=== PATIENT | female | born 1940 | race Caucasian/White ===

== ENCOUNTER 2016-07-11 08:59 | Outpatient (CLI) | payer MEDICARE ==
[~2016-07-11] VITALS: Ht 167.6 cm; Wt 81.8 kg
[~2016-07-11 08:59] MED LIST: ASPI-892 PO; CLCX100C PO; DOXY-13 PO; GLUC1000 PO; HCT25T PO; LVT.05T PO; METO50TA7 PO; OMEP-10 PO; SIMV20TA3 PO
[2016-07-11] MEDS ORDERED: GLUC1CAP14 PO (09:14)
[2016-07-11] MEDS ORDERED: RANI-515 PO ×2 (09:14)
[2016-07-11 09:25] VITALS: BP 142/81
[2016-07-11 10:01] LABS: BASOPHILS % (AUTO) 1 % (0-10); EOSINOPHILS # (AUTO) 0.1 10^3/uL (0.0-0.3); EOSINOPHILS % (AUTO) 2 % (0-10); LYMPHOCYTES # (AUTO) 0.7 X 10^3 (1.0-4.0); LYMPHOCYTES % (AUTO) 9 % (12-44); MEAN CORPUSCULAR HEMOGLOBIN 31 PG (25-34); MEAN CORPUSCULAR HGB CONC 33 G/DL (32-36); MEAN CORPUSCULAR VOLUME 93 FL (80-99); MEAN PLATELET VOLUME 9.5 FL (7.4-10.4); MONOCYTES # (AUTO) 0.5 X 10^3 (0.0-1.0); MONOCYTES % (AUTO) 6 % (0-12); NEUTROPHILS # (AUTO) 6.9 X 10^3 (1.8-7.8); NEUTROPHILS % (AUTO) 83 % (42-75); PLATELET COUNT 285 10^3/uL (130-400); RED BLOOD COUNT 4.39 10^6/uL (4.35-5.85); RED CELL DISTRIBUTION WIDTH 12.6 % (10.0-14.5); WHITE BLOOD COUNT 8.4 10^3/uL (4.3-11.0)
[2016-07-11 10:12] LABS: ANION GAP 11 MMOL/L (5-14); BLOOD UREA NITROGEN 11 MG/DL (7-18); BUN/CREATININE RATIO 14; CALCIUM 9.6 MG/DL (8.5-10.1); CARBON DIOXIDE 26 MMOL/L (21-32); CHLORIDE 101 MMOL/L (98-107); CREATININE SERUM 0.79 MG/DL (0.60-1.30); GFR ESTIMATED > 60; GLUCOSE 141 MG/DL (70-105); POTASSIUM 3.8 MMOL/L (3.6-5.0); SODIUM 138 MMOL/L (135-145)
[2016-07-14] MEDS ORDERED: ceFAZolin 1 GM/NS 50 ML IVPB IV ONE ×2 (07:45)
== END 2016-07-11 10:45 | disposition home or self-care (01) ==
LOC: PREOP 08:59
PROVIDERS: ATTEND Surgery Pediatric Surgery
DX: Z01.812 Encounter for preprocedural laboratory examination (principal); Z11.2 Encounter for screening for other bacterial diseases; K57.92 Diverticulitis of intestine, part unspecified, without perforation or abscess without bleeding; K80.20 Calculus of gallbladder without cholecystitis without obstruction
CPT/HCPCS: 36415; 80048; 85025; 87081

== ENCOUNTER 2016-07-14 07:00 | Day surgery (SDC) | payer MEDICARE ==
[~2016-07-14] VITALS: Ht 167.6 cm; Wt 81.8 kg
[~2016-07-14 07:00] MED LIST changes: +GLUC1CAP14 PO; +RANI-515 PO
--- OUTSIDE RECORDS SUMMARY | 2016-07-14 07:06 | XMS REPORT | Continuity of Care Document ---
Author Author [facility] Organization 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 Medications Current Home Medications Medication Dose Units Route Directions Days/Qty Instructions Start Date Celecoxib 100 Mg 1 Oral Twice A Day 07/10/10 Metoprolol Succinate 50 Mg 1 Oral Daily 07/10/10 Levothyroxine Sodium 50 Mcg 1 Oral Daily 07/10/10 Aspirin 81 Mg 1 Oral Daily 07/10/10 Simvastatin 20 Mg 1 Oral Daily 07/10/10 Hydrochlorothiazide 25 Mg 12.5 Mg Oral Daily 07/10/10 Gluc Hcl/Csa/Elpidio Hy/Hyalur Ac 1 Each 2 Each Oral Daily 07/11/16 Ranitidine Hcl (Ranitidine) 150 Mg 150 Mg Oral Daily 07/11/16 Ranitidine Hcl (Ranitidine) 150 Mg 300 Mg Oral Bedtime 07/11/16 Past Home Medications Medication Directions Ordered Status Omeprazole 20 Mg Capsule.dr, 1 Oral Daily 02/05/11 Discontinued Glucosamine Sulfate 1,000 Mg Capsule, 1500 Oral Daily 07/10/10 Discontinued Doxycycline Hyclate 100 Mg Capsule, 1 Each Oral Give Every 12 Hrs On Schedule 07/10/10 Discontinued Social History Social History Problem Response Recorded Date/Time Alcohol Use Denies Use 07/11/2016 9:11am Recreational Drug Use No 07/11/2016 9:11am Recent Foreign Travel No 07/11/2016 9:09am Recent Infectious Disease Exposure No 07/11/2016 9:09am Sexually Transmitted Disease No 07/11/2016 9:11am HIV/AIDS No 07/11/2016 9:11am Smoking Status Never a Smoker 07/11/2016 9:11am Recent Hopitalizations No 07/11/2016 9:11am Sexually Transmitted Disease No 07/11/2016 9:11am Query Response Start Date Stop Date Smoking Status Never a Smoker Hospital Discharge Instructions No hospital discharge instructions. Plan of Care Discharge Date 07/11/16 10:45am Prescriptions See Medication Section Functional Status No functional status results. Allergies, Adverse Reactions, Alerts No known allergies. Immunizations No immunization records. Vital Signs Acute Vital Signs Vital Response Date/Time Pulse Rate (adult) 68 bpm (60 - 90) 07/11/2016 9:25am Respiratory Rate 16 bpm (12 - 24) 07/11/2016 9:25am O2 Sat by Pulse Oximetry 97 % (88 - 100) 07/11/2016 9:25am Blood Pressure 142/81 mm Hg 07/11/2016 9:25am Blood Pressure Mean 101 mm Hg 07/11/2016 9:25am Pain Numeric Pain Scale 0-No Pain 07/11/2016 9:25am Height (Feet) 5 feet 07/11/2016 9:09am Height (Inches) 6.00 inches 07/11/2016 9:09am Height (Calculated Centimeters) 167.632434 cm 07/11/2016 9:09am Weight (Pounds) 180 pounds 07/11/2016 9:09am Weight (Ounces) 7.0 oz 07/11/2016 9:09am Weight (Calculated Grams) 59443.07 gm 07/11/2016 9:09am Weight (Calculated Kilograms) 81.668596 kilograms 07/11/2016 9:09am Calculated BMI 29.1 07/11/2016 9:09am Results Laboratory Results Test Name Result Units Flags Reference Collection Date/Time Result Date/ Time Comments White Blood Count 8.4 10^3/uL 4.3-11.0 07/11/2016 9:35am 07/11/2016 10: 01am Red Blood Count 4.39 10^6/uL 4.35-5.85 07/11/2016 9:35am 07/11/2016 10: 01am Hemoglobin 13.5 G/DL 11.5-16.0 07/11/2016 9:35am 07/11/2016 10:01am Hematocrit 41 % 35-52 07/11/2016 9:35am 07/11/2016 10:01am Mean Corpuscular Volume 93 FL 80-99 07/11/2016 9:35am 07/11/2016 10: 01am Mean Corpuscular Hemoglobin 31 PG 25-34 07/11/2016 9:35am 07/11/2016 10 :01am Mean Corpuscular Hemoglobin Concent 33 G/DL 32-36 07/11/2016 9:35am 11/2016 10:01am Red Cell Distribution Width 12.6 % 10.0-14.5 07/11/2016 9:35am 2016 10:01am Platelet Count 285 10^3/uL 130-400 07/11/2016 9:35am 07/11/2016 10: 01am Mean Platelet Volume 9.5 FL 7.4-10.4 07/11/2016 9:35am 07/11/2016 10: 01am Neutrophils (%) (Auto) 83 % H 42-75 07/11/2016 9:35am 07/11/2016 10:01am Lymphocytes (%) (Auto) 9 % L 12-44 07/11/2016 9:35am 07/11/2016 10:01am Monocytes (%) (Auto) 6 % 0-12 07/11/2016 9:35am 07/11/2016 10:01am Eosinophils (%) (Auto) 2 % 0-10 07/11/2016 9:35am 07/11/2016 10:01am Basophils (%) (Auto) 1 % 0-10 07/11/2016 9:35am 07/11/2016 10:01am Neutrophils # (Auto) 6.9 X 10^3 1.8-7.8 07/11/2016 9:35am 07/11/2016 10 :01am Lymphocytes # (Auto) 0.7 X 10^3 L 1.0-4.0 07/11/2016 9:35am 07/11/2016 10 :01am Monocytes # (Auto) 0.5 X 10^3 0.0-1.0 07/11/2016 9:35am 07/11/2016 10: 01am Eosinophils # (Auto) 0.1 10^3/uL 0.0-0.3 07/11/2016 9:35am 07/11/2016 10:01am Basophils # (Auto) 0.0 10^3/uL 0.0-0.1 07/11/2016 9:35am 07/11/2016 10: 01am Sodium Level 138 MMOL/L 135-145 07/11/2016 9:35am 07/11/2016 10:12am Potassium Level 3.8 MMOL/L 3.6-5.0 07/11/2016 9:35am 07/11/2016 10: 12am Chloride Level 101 MMOL/L 98-107 07/11/2016 9:35am 07/11/2016 10:12am Carbon Dioxide Level 26 MMOL/L 21-32 07/11/2016 9:35am 07/11/2016 10: 12am Anion Gap 11 MMOL/L 5-14 07/11/2016 9:35am 07/11/2016 10:12am Blood Urea Nitrogen 11 MG/DL 7-18 07/11/2016 9:35am 07/11/2016 10:12am Creatinine 0.79 MG/DL 0.60-1.30 07/11/2016 9:35am 07/11/2016 10:12am BUN/Creatinine Ratio 14 07/11/2016 9:35am 07/11/2016 10:12am Estimat Glomerular Filtration Rate > 60 07/11/2016 9:35am 2016 10:12am GFR INTERPRETIVE DATA UNITS FOR ESTIMATED GFR (eGFR): mL/min/1.73 M2 REFERENCE RANGE FOR ESTIMATED GFR (eGFR) eGFR NORMAL eGFR >60 MODERATELY DECREASED eGFR 30-59 SEVERLY DECREASED eGFR 15-29 KIDNEY FAILURE <15 (OR DIALYSIS) Glucose Level 141 MG/DL H 70-105 07/11/2016 9:35am 07/11/2016 10:12am Calcium Level 9.6 MG/DL 8.5-10.1 07/11/2016 9:35am 07/11/2016 10:12am Procedures No known history of procedures. Encounters Encounter Location Arrival/Admit Date Discharge/Depart Date Attending Provider Departed Clinic [facility] 07/11/16 8:59am 07/11/16 10: 45am MEÑO TERAN MD
--- OUTSIDE RECORDS SUMMARY | 2016-07-14 07:06 | XMS REPORT | Continuity of Care Document ---
Author Author [facility] Organization [facility] Address Unknown Phone Unavailable Care Team Providers Care Human Resources Benefits Specialist Name Role Phone DENIA JOSÉ MD PCP Insurance Providers Payer Name Policy Number Subscriber Name Relationship Wps Medicare [id number] Joelle Kilgore 18 Self / Same As Patient Blue Cross [facility] [id number] Joelle Kilgore Self / Same As Patient Advance Directives Directive Response Recorded Date/Time Advance Directives No 07/11/16 9:11am Health Care Power of Welding Equipment Sales Representative No 07/11/16 9:11am Organ Donor Yes 07/11/16 [...] 6.00 inches 07/11/2016 9:09am Height (Calculated Centimeters) 167.247817 cm 07/11/2016 9:09am Weight (Pounds) 180 pounds 07/11/2016 9:09am Weight (Ounces) 7.0 oz 07/11/2016 9:09am Weight (Calculated Grams) 27550.07 gm 07/11/2016 9:09am Weight (Calculated Kilograms) 81.521205 kilograms 07/11/2016 9:09am Calculated BMI 29.1 07/11/2016 [...] Discharge/Depart Date Attending Provider Departed Clinic [facility] 07/11/16 8:59am 07/11/16 10: 45am MEÑO TERAN MD
[2016-07-14 07:20] VITALS: BP 168/90
[2016-07-14] MEDS ORDERED: BUP/EPI 0.5% 1:200,000 (SENSORCAINE) 30 ML VIAL ONE (07:28)
--- NOTE | 2016-07-14 07:44 | Progress Note-Pre Operative ---
Pre-Operative Progress Note H&P Reviewed The H&P was reviewed, patient examined and no changes noted. Date H&P Reviewed: Jul 14, 2016 Time H&P Reviewed: 07:35 Pre-Operative Diagnosis: Diverticulitis, symptomatic cholelithasis RAMANA MCCANN APRN Jul 14, 2016 7:44 am
[2016-07-14] MEDS ORDERED: ONDANSETRON 4 MG/2 ML (SDV) Z0FRAN IVP PRN ×2 (07:45→10:00)
[2016-07-14] MEDS ORDERED: FAMOTIDINE 20MG/2ML IV (PEPCID) IV ONE (07:45)
[2016-07-14] MEDS ORDERED: morphine INJ 10 MG/ML 1ML (SYR OR VIAL) IVP PRN ×2 (07:45→10:00)
[2016-07-14] MEDS ORDERED: HYDROcodone/APAP 5 MG/325 MG (LORTAB) TAB PO ONE (07:45)
[2016-07-14] MEDS ORDERED: ACETAMINOPHEN 325 MG TABLET/CAPLET (TYLENOL) PO PRN (07:45)
[2016-07-14] MEDS ORDERED: ceFAZolin 1 GM/NS 50 ML IVPB IV ONE ×2 (07:45)
[2016-07-14] MEDS: LACTATED RINGERS 1,000 ML IV PRN ×2 (07:48→08:20)
[2016-07-14] MEDS ORDERED: ONDANSETRON 4 MG/2 ML (SDV) Z0FRAN ONE (08:06)
[2016-07-14] MEDS ORDERED: fentaNYL INJECTION 100 MCG/2 ML AMP ONE (08:06)
[2016-07-14] MEDS ORDERED: LACTATED RINGERS 1,000 ML IV ONE ×2 (08:06→09:17)
[2016-07-14] MEDS ORDERED: proPOfol 200 MG/20 ML (DIPRIVAN) VIAL IV ONE (08:06)
[2016-07-14] MEDS ORDERED: LIDOCAINE PF 2% 10 ML (XYLOCAINE) AMP ONE (08:06)
[2016-07-14] MEDS ORDERED: ROCURONIUM 50 MG/5 ML (ZEMURON) VIAL IV ONE (08:06)
[2016-07-14] MEDS ORDERED: DEXAMETHASONE PF 10 MG/ML (DECADRON) VIAL ONE (08:13)
[2016-07-14] MEDS ORDERED: GLYCOPYRROLATE 0.2 MG/ML (ROBINUL) 2 ML VIAL ONE (09:18)
[2016-07-14] MEDS ORDERED: NEOSTIGMINE (BLOXIVERZ ) 1 MG/1ML 10 ML VIAL ONE (09:18)
[2016-07-14] MEDS ORDERED: ESMOLOL 100 MG/10 ML (BREVIBLOC) VIAL ONE (09:41)
[2016-07-14] MEDS ORDERED: SEVOFLURANE (ULTANE) 15 ML INHAL SOLN ONE (09:41)
--- NOTE | 2016-07-14 09:47 | Progress Note-Post Operative ---
Post-Operative Progess Note Chief Deputy Clerk/Bailiff ev man SPONGE DIVER Pre-Operative Diagnosis Diverticulitis, symptomatic cholelithasis Post-Operative Diagnosis chronic calculous cholecystitis, mild chronic stage 2 ext and int hemorroids, moderate sigmoid diverticulosis. Post-Op Procedure Note Date of Procedure: Jul 14, 2016 Name of Procedure: laparoscopic cholecystectomy. Colonoscopy Anesthesia Type GET Estimated blood loss (mL): minimal Specimen(s) collected gallbladder MEÑO TERAN MD Jul 14, 2016 09:47
[2016-07-14] MEDS ORDERED: morphine INJ 10 MG/ML 1ML (SYR OR VIAL) ONE (09:48)
--- NOTE | 2016-07-14 09:48 | Discharge Inst-Surgical ---
D/C Lap Instructions-JEFFRY New, Converted, or Re-Newed RX: RX on Chart Follow Up Appt in 2 weeks Activity as tolerated No driving for 24 hours No driving while on pain medications Incentive Spirometry use every 2 hours while awake Regular Diet Symptoms to Report: Fever over 101 degree F, Nausea/Vomiting Infection Signs and Symptoms to report: Increased redness, Foul odor of wound, Increased drainage Bathing instructions: May shower Operative Area Clean/Dry; Keep incision clean/dry If any problems/questions: Contact your physician or go to Emergency Room MEÑO TERAN MD Jul 14, 2016 09:48
[2016-07-14] MEDS ORDERED: MEPERIDINE (DEMEROL) INJ 50 MG/ML IVP PRN (10:00)
[2016-07-14] MEDS ORDERED: HYDROmorphone (DILAUDID) 2 MG/ML VIAL IVP PRN (10:00)
[2016-07-14] MEDS ORDERED: HYDR-3730 PO (10:36)
[2016-07-14 10:45] VITALS: BP 137/67
[2016-07-14 11:15] VITALS: BP 147/71
[2016-07-14 11:45] VITALS: BP 128/69
--- NOTE | 2016-07-15 12:12 | OPERATIVE REPORT ---
PROCEDURE PHYSICIAN: MEÑO TIWARI DATE OF PROCEDURE: 07/14/2016 ATTENDING PRIMARY CARE PHYSICIAN: Dr. Rollins. PREOPERATIVE DIAGNOSIS: 1. Symptomatic chronic calculus cholecystitis. 2. Recent episode of diverticulitis with left lower abdominal quadrant pain. POSTOPERATIVE DIAGNOSES: 1. Chronic calculus cholecystitis. 2. Chronic, stage II external and internal hemorrhoids. 3. Moderate sigmoid diverticulosis with no active signs of diverticulitis. PROCEDURE: 1. Laparoscopic cholecystectomy. 2. Colonoscopy. SURGEON: Dr. Tiwari. EMAIL DESIGNER: Omid Cowart APRN. ANESTHESIA: General endotracheal. ESTIMATED BLOOD LOSS: Minimal. FINDINGS: 1. Mild gallbladder wall dilatation with multiple small stones. 2. Chronic, stage II external and internal hemorrhoids, not actively edematous or inflamed and no bleeding. 3. A moderate sigmoid diverticulosis with no acute inflammatory changes. 4. No polyps or any neoplasms identified. DISPOSITION: The patient tolerated the procedure well. Ms. Martine Campbell is a 76 female who has had abdominal pain issues for the past several months. She reports that she did have some discomfort in the left lower abdominal quadrant several weeks ago. Upon further questioning, she also reports she has had pain in the epigastric as well as the right upper abdominal quadrant in the past as well. She reports that this has become more frequent and more severe in nature and usually following meals. A CT scan was performed, which did show signs of direct sigmoid diverticulitis. Gallstones were also identified. The patient was brought to the operating room, laid supine on the table. After adequate IV pain and sedative medications and general endotracheal intubation the abdomen was prepped and draped in standard surgical fashion. 0.5% Marcaine with epinephrine was used to anesthetize the overlying skin in the left upper abdominal quadrant. A small transverse skin incision made using a 15 blade. An 0 silk suture was applied to the medial aspect of the incision for retraction. A Veress needle inserted with a low opening pressure of 0 mmHg and the abdomen was then insufflated to 15 mmHg pressure. The Veress needle removed and a 5 mm Xcel trocar placed followed by a 5 mm, 45 degrees angle laparoscope, visualizing the peritoneal cavity. A four-quadrant abdominal exploration was performed. There was slightly dilated gallbladder. What was visualized of the stomach, liver, omentum, and small bowel appeared normal. Under direct visualization we then proceeded to place a supraumbilical 10 mm port after the skin and peritoneum were anesthetized using 0.5% Marcaine with epinephrine and a transverse skin incision made using a 15 blade. In a similar manner, a right upper abdominal quadrant 5 mm port was placed. The patient was then placed in the reverse Trendelenburg position as well as planed right side up, left side down. The fundus of the gallbladder was then retracted anteriorly and superiorly. The hepatoduodenal ligament was then dissected using blunt dissection as well as electrocautery on the hook instrument. The entire critical view of safety was identified including the triangle of Calot as well as the cystic duct and artery going into the gallbladder, as well as the liver behind the proximal portion of the gallbladder. The cystic duct and artery were then clipped proximally and distally after a timeout and cut with endo diana. Good hemostasis was observed. The gallbladder was then dissected off of the liver bed using electrocautery on the hook instrument with visualization of good hemostasis, as well as no leaking ducts of Luschka. The gallbladder was removed through the 10 mm port site using an Endo Catch bag. The area was then copiously irrigated and suctioned out with visualization of good hemostasis, as well as intact previously placement. The gallbladder was removed through the 10 mm port site using an Endo Catch bag. The 10 mm port site, fascia and peritoneum were then closed under direct visualization using a Billy-Cyrus device and 0 Vicryl suture. The abdomen was desufflated and the remaining ports removed. All skin incisions were closed using 4-0 Monocryl running subcuticular sutures. Wounds were then cleaned and covered with Dermabond. The patient tolerated this portion of the procedure well. We will start IV and oral pain medication as well as a clear liquid diet. Once she is tolerating clears, has good pain control with oral pain medications, ambulating well, we will discharge her home. Under the same general endotracheal anesthesia, we then proceeded with the colonoscopy portion the procedure. The legs were frog legged a digital rectal examination was performed, which revealed chronic, stage II external and internal hemorrhoids, not actively edematous or inflamed and no bleeding. Normal sphincter tone was felt and there were no palpable masses. The endoscope was then intubated into the anus and the rectum gently insufflated. The endoscope was then advanced through the valves of Romero of the rectum with no polyps or any neoplasms identified. We then proceeded through the sigmoid colon where a moderate sigmoid diverticulosis identified. There were no mucosal inflammatory changes to indicate any active diverticulitis. The endoscope was then advanced through the remainder of the descending, transverse, and ascending colon to the cecum. These segments were normal. There were no polyps or any neoplasms identified throughout the colon or rectum. The endoscope was then slowly withdrawn while taking a second look and suctioning of residual air with no additional findings. The patient tolerated the procedure well. We will have her continue with medical management with the necessary lifestyle and diet accommodation including a high fiber diet with at least 25 to 30 grams of fiber per day, as well as at least 64 fluid ounces of water daily to promote soft stools on a daily basis. Job ID: [id number] Dictated Date: 07/14/2016 09:55:51 Stack Supervisor Date: 07/15/2016 11:56:06 / franck
== END 2016-07-14 12:30 | disposition home or self-care (01) ==
LOC: SDC 07:00
PROVIDERS: ATTEND Surgery Pediatric Surgery
DX: K81.1 Chronic cholecystitis (principal); K57.30 Diverticulosis of large intestine without perforation or abscess without bleeding; K64.1 Second degree hemorrhoids
CPT/HCPCS: 88304; 94664

== ENCOUNTER → 2016-11-22 | Outpatient (CLI) | payer MEDICARE ==
[~2016-11-22] MED LIST changes: +HYDR-3730 PO
--- NOTE | 2016-11-23 08:19 | Diagnostic Imaging Report ---
Bilateral screening mammogram The current study was also evaluated with a Computer Aided Detection (CAD) system. Indication: Screening. No current complaints stated on the questionnaire. COMPARISON: 12/03/15 FINDINGS: The breasts are composed of heterogeneously dense parenchyma which may decrease mammographic sensitivity. Scattered benign-appearing calcifications are seen. Allowing for technique and positional differences, no suspicious change is seen. IMPRESSION: No significant change. ACR BI-RADS Category 2: Benign findings. Result letter will be mailed to the patient. Note: At least 10% of breast cancer is not imaged by mammography. Dictated by: Dictated on workstation # [id number]
== END ==
LOC: RAD 09:12
PROVIDERS: ATTEND Internal Medicine
DX: Z12.31 Encounter for screening mammogram for malignant neoplasm of breast (principal)
CPT/HCPCS: 77067

== ENCOUNTER → 2017-11-23 | Outpatient (CLI) | payer MEDICARE ==
--- NOTE | 2017-11-23 10:33 | Diagnostic Imaging Report ---
INDICATION: Routine screening. COMPARISON: 11/22/2016 and 12/03/2015. TECHNIQUE: 2D and 3D bilateral screening mammography was performed with CAD. FINDINGS: Both breasts are heterogeneously dense, limiting the sensitivity of mammography. There are scattered benign-appearing calcifications in both breasts. The overall parenchymal pattern appears to be stable. No new mass or malignant appearing microcalcifications are seen. The axillae are unremarkable. IMPRESSION: No mammographic features suspicious for malignancy are identified. ACR BI-RADS Category 2: Benign findings. Result letter will be mailed to the patient. Note: At least 10% of breast cancer is not imaged by mammography. Dictated by: Dictated on workstation # [id number]
== END ==
LOC: RAD 07:46
PROVIDERS: ATTEND Internal Medicine
DX: Z12.31 Encounter for screening mammogram for malignant neoplasm of breast (principal)
CPT/HCPCS: 77067

== ENCOUNTER → 2018-02-09 | Outpatient (CLI) | payer MEDICARE ==
--- NOTE | 2018-02-09 17:52 | Diagnostic Imaging Report ---
INDICATION: Left axillary pain. FINDINGS: Sonographic interrogation of the left axilla was performed. There is a normal-appearing lymph node in the left axilla measuring approximately 1.3 x 0.7 cm appearance and contains a fatty hilum. No other mass is seen. No fluid collection is identified. IMPRESSION: BI-RADS 2. Unremarkable left axillary ultrasound. Dictated by: Dictated on workstation # [id number]
== END ==
LOC: RAD 10:42
PROVIDERS: ATTEND Internal Medicine
DX: M79.622 Pain in left upper arm (principal)
CPT/HCPCS: 76642

== ENCOUNTER 2018-06-28 11:24 | Outpatient (RCR) | payer MEDICARE | END 2018-06-28 12:04 | disposition home or self-care (01) | PROVIDERS: ATTEND Orthopaedic Surgery | DX: M75.101 Unspecified rotator cuff tear or rupture of right shoulder, not specified as traumatic (principal) ==

== ENCOUNTER → 2018-09-05 | Outpatient (CLI) | payer MEDICARE ==
--- NOTE | 2018-09-05 17:08 | Diagnostic Imaging Report ---
INDICATION: Cough and wheezing. EXAMINATION: PA and lateral views of the chest. FINDINGS: The heart size and vascularity are normal. Lungs are clear. There is no effusion. There is no acute bony abnormality. IMPRESSION: No acute abnormality is seen. There is no change from 08/04/2011. Dictated by: Dictated on workstation # [id number]
== END ==
LOC: RAD 16:11
PROVIDERS: ATTEND Physician Assistant
DX: R05 Cough (principal); R06.2 Wheezing
CPT/HCPCS: 71046

== ENCOUNTER → 2018-10-04 | Outpatient (CLI) | payer MEDICARE ==
--- NOTE | 2018-10-04 12:44 | Diagnostic Imaging Report ---
INDICATION: Fall. Hand injury COMPARISON: None. FINDINGS: Three views of the right hand show no fractures, dislocations, or other acute bony abnormalities identified. Joint spaces are well maintained throughout. The soft tissues appear unremarkable. No radiopaque foreign bodies are identified. IMPRESSION: No acute fractures or dislocations of the right hand. Dictated by: Dictated on workstation # [id number]
--- NOTE | 2018-10-04 12:45 | Diagnostic Imaging Report ---
INDICATION: Pain. Fall. Injury. COMPARISON: None. FINDINGS: Three views of the right wrist demonstrate no acute fracture or dislocation. There are no focal osseous lesions. No avascular necrosis is seen. The visualized soft tissue structures are unremarkable. The pronator fat pad is not displaced. There are no radio opaque foreign bodies. IMPRESSION: 1. No acute fracture or dislocation in the right wrist. Dictated by: Dictated on workstation # [id number]
== END ==
LOC: RAD 12:12
PROVIDERS: ATTEND Physician Assistant
DX: S69.91XA Unspecified injury of right wrist, hand and finger(s), initial encounter (principal); W19.XXXA Unspecified fall, initial encounter
CPT/HCPCS: 73110; 73130

== ENCOUNTER → 2018-10-16 | Outpatient (CLI) | payer MEDICARE ==
--- NOTE | 2018-10-16 13:46 | Diagnostic Imaging Report ---
INDICATION: Right hand pain, swelling TECHNIQUE: Three views of the right hand. CORRELATION STUDY: 10/04/2018 FINDINGS: Generalized bony demineralization is present. There is no acute bony abnormality. Very mild narrowing through the interphalangeal joints, marginal osteophyte formation. Mild degenerative changes of the first carpometacarpal articulation. There is slight ureter osteophyte formation. There is slight irregular likely osteophyte formation at the first carpometacarpal articulation likely degenerative in nature. Small avulsion type fracture would be difficult to exclude given patient's symptoms. If further assessment is desired, CT and/or MRI would be of additional benefit of the first carpometacarpal joint. Minimal cystic change about the tip of the radial styloid. IMPRESSION: 1. Mild scattered degenerative changes about the right hand. Dictated by: Dictated on workstation # [id number]
== END ==
LOC: RAD 08:52
PROVIDERS: ATTEND Physician Assistant
DX: M19.041 Primary osteoarthritis, right hand (principal)
CPT/HCPCS: 73130

== ENCOUNTER → 2018-11-27 | Outpatient (CLI) | payer MEDICARE ==
--- NOTE | 2018-11-27 13:14 | Diagnostic Imaging Report ---
INDICATION: Routine screening. COMPARISON: 11/23/2017 and 11/22/2016. TECHNIQUE: 2D and 3D bilateral screening mammography was performed with CAD. FINDINGS: Both breasts are heterogeneously dense, limiting the sensitivity of mammography. Extensive benign-appearing calcifications are noted bilaterally. These appear similar to the prior exam. No mass or malignant appearing microcalcifications are seen. The axillae are unremarkable. IMPRESSION: No mammographic features suspicious for malignancy are identified. ACR BI-RADS Category 2: Benign findings. Result letter will be mailed to the patient. Note: At least 10% of breast cancer is not imaged by mammography. Dictated by: Dictated on workstation # [id number]
== END ==
LOC: RAD 09:31
PROVIDERS: ATTEND Internal Medicine
DX: Z12.31 Encounter for screening mammogram for malignant neoplasm of breast (principal)
CPT/HCPCS: 77067

== ENCOUNTER → 2019-03-21 | Outpatient (CLI) | payer MEDICARE | LOC: CARD 09:53 | PROVIDERS: ATTEND Internal Medicine | DX: R00.2 Palpitations (principal) | CPT/HCPCS: 93005 ==

== ENCOUNTER → 2019-05-20 | Outpatient (CLI) | payer MEDICARE ==
--- NOTE | 2019-05-20 15:14 | Diagnostic Imaging Report ---
INDICATION: Left hip pain, fall. TIME OF EXAM: 2:40 p.m. Two views of the left hip were obtained. FINDINGS: Femoroacetabular alignment is normal. Joint space is well maintained. Femoral head and neck are intact. No fractures are seen. IMPRESSION: No acute bony abnormality is detected. Dictated by: Dictated on workstation # [id number]
== END ==
LOC: RAD 14:03
PROVIDERS: ATTEND Internal Medicine
DX: M25.552 Pain in left hip (principal); W19.XXXA Unspecified fall, initial encounter
CPT/HCPCS: 73502

== ENCOUNTER → 2019-08-23 | Outpatient (CLI) | payer MEDICARE ==
[~2019-08-23] MED LIST changes: +HOLD METFORMIN - RECEIVED CONTRAST 20 ML VIAL IV SCH; +IOHEXOL 350 MG/ML 100 ML (OMNIPAQUE 350) VIAL IV ONE; +NS 100 ML (IVPB) BAG IV ONE; -RANI-515 PO; +RANI-609 PO
--- NOTE | 2019-08-23 10:57 | Diagnostic Imaging Report ---
PROCEDURE: CT abdomen and pelvis with contrast. TECHNIQUE: Multiple contiguous axial images were obtained through the abdomen and pelvis after administration of intravenous contrast. Auto Exposure Controls were utilized during the CT exam to meet ALARA standards for radiation dose reduction. DATE: August 23, 2019. COMPARISON: CT abdomen and pelvis April 22, 2016. INDICATION: 79-year-old female, periumbilical pain. FINDINGS: The visualized portions of the lung bases are grossly clear. The heart is not enlarged. There is no pericardial effusion. The liver is unremarkable in size and contour. The dome of the liver is not in the included field of view of imaging. The main, right, and left portal veins are patent. The patient is status post cholecystectomy. There is no biliary ductal dilation. The main pancreatic duct is not abnormally dilated. Unremarkable appearance of the pancreatic parenchyma. The spleen is not enlarged. There is a peripherally calcified low-attenuation splenic lesion measuring 3.2 cm in size which is nonspecific. This is grossly stable since April 22, 2016. The adrenal glands are unremarkable. The right kidney is absent. There is a left renal lesion on axial image 19 which measures 1.8 cm in size. This previously was hyperdense and measured approximately 1.5 cm in size on April 22, 2016. This lesion is not able to be definitively characterized. Internal attenuation measures 70 Hounsfield units. There is no left hydronephrosis. There is no identified left renal or ureteral stone. Urinary bladder is underdistended and not well evaluated. The uterus is not seen and may be surgically absent. There is diverticulosis without evidence of acute diverticulitis. The intestinal tract is not distended. There is no evidence to suggest acute appendicitis. There is no free intraperitoneal air. There is no drainable fluid collection. There is no free pelvic fluid. There are atherosclerotic calcifications. There is no identified abnormally enlarged lymph node in the abdomen or pelvis which meets CT size criteria for adenopathy. There is no identified acute bony abnormality. There is grade 1 anterolisthesis of L4 on L5 relating to facet degenerative changes. IMPRESSION: CT ABDOMEN AND PELVIS. 1. No identified acute abnormality in the abdomen or pelvis. 2. Indeterminate left renal lesion measuring 1.7 cm in size. Dedicated renal mass protocol CT abdomen without and with intravenous contrast is recommended for further evaluation. 3. Peripherally calcified centrally low-attenuation splenic lesion grossly unchanged since April 2016. No splenomegaly. Dictated by: Dictated on workstation # [id number]
== END ==
LOC: RAD 09:47
PROVIDERS: ATTEND Internal Medicine
DX: N28.9 Disorder of kidney and ureter, unspecified (principal); K57.90 Diverticulosis of intestine, part unspecified, without perforation or abscess without bleeding; D73.89 Other diseases of spleen
CPT/HCPCS: 74177

== ENCOUNTER → 2019-08-29 | Outpatient (CLI) | payer MEDICARE ==
[~2019-08-29] MED LIST changes: +CATHETER FLUSH 10 ML SYR IV PRN
--- NOTE | 2019-08-29 10:04 | Diagnostic Imaging Report ---
PROCEDURE: CT abdomen with and without contrast. TECHNIQUE: Multiple contiguous axial CT images of the abdomen were obtained prior to and after intravenous administration of iodinated contrast. Auto Exposure Controls were utilized during the CT exam to meet ALARA standards for radiation dose reduction. INDICATION: Right-sided abdominal pain. Recent CT demonstrated a left renal mass deemed indeterminate. Study is performed utilizing renal protocol for further evaluation. Comparison is made with the recent CT study from 08/23/2019. FINDINGS: The liver again demonstrates a small low density in the left lobe, too small to characterize. Gallbladder surgically absent. No biliary duct dilatation is seen. Pancreas unremarkable. The peripherally calcified low-density lesion in the spleen is stable. Right kidney appears to be surgically absent. Left kidney again demonstrates two cortical lesions in the upper pole. Both of these lesions are hyperdense on precontrast imaging. These do not appear to demonstrate contrast enhancement on the postcontrast images and are most suggestive of hemorrhagic cysts. Largest measures approximately 1.9 cm in size. Smaller lesion just lateral to this measures 1.3 cm in size. No calculi or hydronephrosis is detected. The aorta is calcified but nonaneurysmal. Bowel loops are normal caliber. There is no free fluid. IMPRESSION: 1. Hyperdense, nonenhancing lesions involving the upper pole of the left kidney, most suggestive of hemorrhagic cyst. Continued followup to confirm stability is recommended. Dictated by: Dictated on workstation # [id number]
== END ==
LOC: RAD 08:46
PROVIDERS: ATTEND Internal Medicine
DX: N28.9 Disorder of kidney and ureter, unspecified (principal)
CPT/HCPCS: 74170

== ENCOUNTER → 2020-02-07 | Outpatient (CLI) | payer MEDICARE, OTHER ==
[~2020-02-07] MED LIST changes: -CATHETER FLUSH 10 ML SYR IV PRN
--- NOTE | 2020-02-07 11:03 | Diagnostic Imaging Report ---
PROCEDURE: CT abdomen with and without contrast. TECHNIQUE: Multiple contiguous axial CT images of the abdomen were obtained prior to and after intravenous administration of iodinated contrast. Auto Exposure Controls were utilized during the CT exam to meet ALARA standards for radiation dose reduction. INDICATION: Follow-up abnormal CT scan The previous CT abdomen/pelvis exam of 08/29/2019 noted two hyperdense cortical lesions in the upper pole of the solitary left kidney on the pre-intravenous contrast series. These were felt to be suggestive of hemorrhagic cysts. Those findings are again evident on this exam do not appear to have changed significantly in size or appearance. The stability of these findings over a roughly 6 month period would suggest that they are not related to an aggressive neoplastic process. I do suspect that they are benign. If further study is desired, then MRI would be recommended. If the MRI exam is not performed, then a short-term (6-month) follow-up CT abdomen exam with renal protocol should be obtained. The overall appearance of the abdomen has not changed significantly otherwise. The liver is homogeneous and not enlarged. The gallbladder is surgically absent. The peripherally calcified cyst in the spleen seen on the prior study is again evident and no different. The pancreas, the adrenals, the aorta and inferior vena cava and portal vein are unremarkable for an acute abnormality. The stomach is not well-distended and consequently difficult to assess. There is no mass or free fluid collection noted. The lung bases are generally clear. The bone windows show no sign of a fracture or of a destructive lesion. IMPRESSION: 1. The 2 suspected slightly complicated cysts associated with the left kidney seen previously are again evident and do not appear to have changed adversely. The stability of these findings does suggest that they are not related to an aggressive neoplastic process and most likely these cysts are benign. Recommendations as above. 2. There is no acute abnormality of the abdomen noted. Dictated by: Dictated on workstation # [id number]
== END ==
LOC: RAD 08:26
PROVIDERS: ATTEND Internal Medicine
DX: R93.5 Abnormal findings on diagnostic imaging of other abdominal regions, including retroperitoneum (principal)
CPT/HCPCS: 74170

== ENCOUNTER → 2020-02-17 | Outpatient (CLI) | payer MEDICARE, OTHER ==
[~2020-02-17] MED LIST changes: +CATHETER FLUSH 10 ML SYR IV PRN
[2020-02-17 14:17] LABS: HEMOGLOBIN 11.9 G/DL (11.5-16.0); MEAN PLATELET VOLUME 8.8 FL (7.4-10.4); WHITE BLOOD COUNT 6.8 10^3/uL (4.3-11.0)
[2020-02-17 14:35] LABS: ALANINE AMINOTRANSFERASE 8 U/L (0-55); ALBUMIN 3.9 GM/DL (3.2-4.5); ALKALINE PHOSPHATASE 71 U/L (40-136); BILIRUBIN,TOTAL 0.3 MG/DL (0.1-1.0); BUN/CREATININE RATIO 14; CALCIUM 9.8 MG/DL (8.5-10.1); CARBON DIOXIDE 26 MMOL/L (21-32); CHLORIDE 100 MMOL/L (98-107); CREATININE SERUM 0.76 MG/DL (0.60-1.30); GFR ESTIMATED > 60; GLUCOSE 111 MG/DL (70-105); POTASSIUM 4.1 MMOL/L (3.6-5.0); SODIUM 136 MMOL/L (135-145); TOTAL PROTEIN 7.2 GM/DL (6.4-8.2)
[2020-02-17 15:29] LABS: BILIRUBIN,URINE NEGATIVE (NEGATIVE); CLARITY,URINE CLEAR; COLOR,URINE YELLOW; GLUCOSE, URINE (UA) NEGATIVE (NEGATIVE); KETONES,URINE NEGATIVE (NEGATIVE); LEUKOCYTE ESTERASE ,URINE NEGATIVE (NEGATIVE); NITRITE,URINE NEGATIVE (NEGATIVE); PH,URINE 6.5 (5-9); PROTEIN,URINE NEGATIVE (NEGATIVE)
[2020-02-17 15:45] LABS: BACTERIA,URINE NEGATIVE /HPF
--- NOTE | 2020-02-17 16:01 | Diagnostic Imaging Report ---
PROCEDURE: CT abdomen and pelvis with contrast. TECHNIQUE: Multiple contiguous axial images were obtained through the abdomen and pelvis after administration of intravenous contrast. Auto Exposure Controls were utilized during the CT exam to meet ALARA standards for radiation dose reduction. INDICATION: Abdominal pain, bloating, and constipation. COMPARISON: CT abdomen from 02/07/2020. FINDINGS: The lung bases are clear. The liver is unremarkable. The gallbladder is surgically absent. No biliary ductal dilatation is seen. The pancreas is unremarkable. The peripherally calcified low-density mass in the spleen is unchanged. No adrenal mass is detected. Low-density lesions in the left kidney are stable. The aorta is heavily calcified but nonaneurysmal. No central, retroperitoneal, or mesenteric lymphadenopathy is seen. The bowel loops are of normal caliber. There is extensive diverticulosis of the sigmoid colon. There is some wall thickening near the rectosigmoid junction with some mild adjacent inflammatory stranding. The findings are suspicious for acute diverticulitis. There is no fluid collection or bowel obstruction. The bladder is decompressed. IMPRESSION: Features concerning for acute sigmoid diverticulitis. No abscess formation or bowel obstruction is identified. Dictated by: Dictated on workstation # [id number]
== END ==
LOC: RAD 14:04
PROVIDERS: ATTEND Physician Assistant
DX: K59.00 Constipation, unspecified (principal); R50.9 Fever, unspecified; R10.84 Generalized abdominal pain; R14.0 Abdominal distension (gaseous); Z90.49 Acquired absence of other specified parts of digestive tract
CPT/HCPCS: 36415; 74177; 80053; 81000; 85027; 86141

== ENCOUNTER → 2020-07-30 | Outpatient (CLI) | payer MEDICARE, OTHER ==
[~2020-07-30] MED LIST changes: -CATHETER FLUSH 10 ML SYR IV PRN; -HOLD METFORMIN - RECEIVED CONTRAST 20 ML VIAL IV SCH; -IOHEXOL 350 MG/ML 100 ML (OMNIPAQUE 350) VIAL IV ONE; -NS 100 ML (IVPB) BAG IV ONE
--- NOTE | 2020-07-30 16:05 | Diagnostic Imaging Report ---
INDICATION: Increasing back pain. TIME OF EXAM: 2:17 p.m. FINDINGS: Curvature of the lumbar spine is normal. There is grade 2 spondylolisthesis of L5 on S1. Vertebral body heights are maintained. No acute compression fracture is seen. There is multilevel facet arthropathy noted. There is disc space narrowing at L5-S1. Atherotic changes in abdominal aorta are noted. IMPRESSION: Lumbar spondylosis and spondylolisthesis. No acute fracture is detected. Dictated by: Dictated on workstation # [id number]
--- NOTE | 2020-07-30 16:06 | Diagnostic Imaging Report ---
INDICATION: Increasing back pain. TIME OF EXAM: 2:18 p.m. FINDINGS: There is some mild increased kyphotic curvature to the thoracic spine. Vertebral body heights appear to be well maintained. No acute compression fracture is seen. There is multilevel degenerative disc disease with marginal osteophyte formation. The pedicles and paraspinous line are intact. There is some tortuosity and ectasia of the descending thoracic aorta. IMPRESSION: Thoracic spondylosis. No acute bony abnormality is detected. Dictated by: Dictated on workstation # [id number]
== END ==
LOC: RAD 13:47
PROVIDERS: ATTEND Internal Medicine
DX: M47.814 Spondylosis without myelopathy or radiculopathy, thoracic region (principal); M47.816 Spondylosis without myelopathy or radiculopathy, lumbar region; M43.16 Spondylolisthesis, lumbar region
CPT/HCPCS: 72072; 72100

== ENCOUNTER → 2020-09-21 | Outpatient (CLI) | payer MEDICARE, OTHER ==
--- NOTE | 2020-09-21 13:46 | Diagnostic Imaging Report ---
PROCEDURE: US right lower extremity venous. TECHNIQUE: Multiple real-time grayscale images were obtained over the right lower extremity in various projections. Additional spectral analysis and color Doppler duplex images were also obtained. INDICATION: Right lower extremity pain. Comparison: Non available. Findings: The right common femoral, femoral and popliteal veins are patent by color doppler imaging and without DVT. Visualized proximal aspects of the greater saphenous, deep femoral, posterior tibial and peroneal veins are also patent. All of the evaluated deep venous structures demonstrate normal compressibility and waveform augmentation where applicable. Anechoic cystic structure in the popliteal fossa measures 4.0 x 1.5 x 2.5 cm and may represent a Hernandez's cyst. Impression: 1. No right lower extremity deep venous thrombosis (DVT). 2. Potential Hernandez's cyst. Dictated by: Dictated on workstation # [id number]
== END ==
LOC: RAD 10:52
PROVIDERS: ATTEND Nurse Practitioner Family
DX: M79.661 Pain in right lower leg (principal)

== ENCOUNTER → 2020-10-27 | Outpatient (CLI) | payer MEDICARE, OTHER ==
--- NOTE | 2020-10-27 12:03 | Diagnostic Imaging Report ---
INDICATION: Fall with pain in the lower posterior right ribs. Time of exam 11:41 a.m. Three views of the right ribs were obtained. There appears to be a nondisplaced fracture involving the right posterior lateral 11th rib. No other rib fractures are detected. No definite parenchymal contusion, effusion or pneumothorax is identified. IMPRESSION: Nondisplaced right posterolateral 11th rib fracture. Dictated by: Dictated on workstation # [id number]
== END ==
LOC: RAD 10:45
PROVIDERS: ATTEND Nurse Practitioner Family
DX: S22.31XA Fracture of one rib, right side, initial encounter for closed fracture (principal); W19.XXXA Unspecified fall, initial encounter
CPT/HCPCS: 71100

== ENCOUNTER → 2020-11-03 | Outpatient (CLI) | payer MEDICARE, OTHER ==
--- NOTE | 2020-11-03 09:38 | Diagnostic Imaging Report ---
INDICATION: FALL,RUQ PAIN,TICK BITE TECHNIQUE: Multiple grayscale sonographic images were obtained of the right upper quadrant of the abdomen. CORRELATION STUDY: None FINDINGS: LIVER: There is uniform echotexture within the visualized portions of the liver. There is hepatopetal direction of flow limiting portal vein but is slightly diminished in velocity. Liver length 16.6 cm. GALLBLADDER: Cholecystectomy. COMMON BILE DUCT: Nondilated at 0.4 cm. PANCREAS: Visualized portions appearing unremarkable. AORTA/IVC: Not well visualized. RIGHT KIDNEY: Post right nephrectomy. OTHER: None. IMPRESSION: 1. Liver appears unremarkable. Slight diminished flow in the main portal vein which demonstrates normal direction of flow. 2. Post cholecystectomy and right nephrectomy. Dictated by: Dictated on workstation # [id number]
== END ==
LOC: RAD 08:30
PROVIDERS: ATTEND Nurse Practitioner Family
DX: R10.11 Right upper quadrant pain (principal); Z90.49 Acquired absence of other specified parts of digestive tract; Z90.5 Acquired absence of kidney
CPT/HCPCS: 76705

== ENCOUNTER → 2021-04-08 | Outpatient (CLI) | payer MEDICARE, OTHER ==
[2021-04-08 08:55] LABS: HEMATOCRIT 41 % (35-52); HEMOGLOBIN 13.5 g/dL (11.5-16.0); MEAN CORPUSCULAR HEMOGLOBIN 31 pg (25-34); MEAN CORPUSCULAR HGB CONC 33 g/dL (32-36); MEAN CORPUSCULAR VOLUME 93 fL (80-99); MEAN PLATELET VOLUME 8.9 fL (9.0-12.2); PLATELET COUNT 312 10^3/uL (130-400); WHITE BLOOD COUNT 6.6 10^3/uL (4.3-11.0)
[2021-04-08 09:17] LABS: ALBUMIN 4.2 GM/DL (3.2-4.5); BILIRUBIN,TOTAL 0.5 MG/DL (0.1-1.0); CREATININE SERUM 0.79 MG/DL (0.60-1.30); POTASSIUM 3.6 MMOL/L (3.6-5.0); TOTAL PROTEIN 7.3 GM/DL (6.4-8.2)
--- NOTE | 2021-04-08 09:18 | Diagnostic Imaging Report ---
US RIGHT LOW EXT NONVASC [id number] INDICATION: Increasing right posterior knee pain. COMPARISON: None available. TECHNIQUE: Grayscale and color Doppler ultrasound of the right popliteal fossa was performed. FINDINGS: In the region of popliteal fossa, there is a mildly complicated cystic structure with internal septations. This measures 5.5 x 1.6 x 2.9 cm. There is no internal vascularity noted. Imaging does not definitively show this structure arising between the semimembranosus and medial head of gastrocnemius. IMPRESSION: 1. Mildly complicated cystic structure in the popliteal fossa is statistically likely a Hernandez's cyst. However, this imaging does not confirm that as it does not show a definitive communication between the medial head of gastrocnemius and the semimembranosus. Therefore, consider routine MRI of the knee without contrast for confirmation. Dictated by: Dictated on workstation # [id number]
== END ==
LOC: RAD 08:19
PROVIDERS: ATTEND Physician Assistant
DX: M71.21 Synovial cyst of popliteal space [Baker], right knee (principal)
CPT/HCPCS: 36415; 76881; 80053; 85027

== ENCOUNTER → 2021-04-27 | Outpatient (CLI) | payer MEDICARE, OTHER ==
--- NOTE | 2021-04-27 14:39 | Diagnostic Imaging Report ---
EXAMINATION: Magnetic resonance imaging of the right knee without intravenous contrast. DATE: April 27, 2021. COMPARISON: None. INDICATION: 81-year-old female, right knee pain. TECHNIQUE: Multiplanar, multisequence non contrast enhanced MR imaging was accomplished. FINDINGS: There are limitations of the exam relating to motion artifact and low eoehgz-wv-glips ratio. MENISCI: There is an oblique tear involving the body and posterior horn of the medial meniscus. There is a 3 mm medial meniscal extrusion. There is a free edge tear involving the body of the lateral meniscus. LIGAMENTS AND TENDONS: The anterior and posterior cruciate ligaments are intact. The medial collateral ligament is intact. The iliotibial band, mid third lateral capsular ligament, fibular collateral ligament, biceps femoris tendon, and conjoined tendon are intact. The quadriceps tendon and patella ligament are intact. JOINT: There are broad areas of full-thickness cartilage loss of the medial patellar facet and median patellar ridge. There is also generalized approximately 50% volume loss of the cartilage of the lateral patellar facet. There is generalized mild to moderate cartilage thinning of the medial compartment. There are lateral compartment osteophytes. There is a trace knee joint effusion. There is no convincing intra-articular body. There is no prominent synovitis. BONE: There is degenerative related marrow edema associated with the patellofemoral compartment. There is no acute fracture, bone contusion, or evidence of osteonecrosis. BURSAE AND SOFT TISSUES: There is a Hernandez's cyst. IMPRESSION: 1. Oblique tear involving the body and posterior horn of the medial meniscus with 3 mm medial meniscal extrusion. 2. Free edge tear involving the body of the lateral meniscus. 3. Intact anterior and posterior cruciate ligaments. Additional ligaments and tendons are intact. 4. 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 Trace knee joint effusion. 5. No acute fracture, bone contusion, or evidence of osteonecrosis. 6. Hernandez's cyst. 7. Limitations of the study relating to motion artifact and low hycjwu-aw-huzuf ratio. Dictated by: Dictated on workstation # [id number]
== END ==
LOC: RAD 12:30
PROVIDERS: ATTEND Physician Assistant
DX: S83.241A Other tear of medial meniscus, current injury, right knee, initial encounter (principal); S83.281A Other tear of lateral meniscus, current injury, right knee, initial encounter; M17.11 Unilateral primary osteoarthritis, right knee; M71.21 Synovial cyst of popliteal space [Baker], right knee
CPT/HCPCS: 73721

== ENCOUNTER → 2021-05-31 | Outpatient (CLI) | payer MEDICARE, OTHER | LOC: LABNPT 08:40 | PROVIDERS: ATTEND Internal Medicine | DX: Z01.812 Encounter for preprocedural laboratory examination (principal); Z20.822 Contact with and (suspected) exposure to COVID-19 | CPT/HCPCS: 87635 ==

== ENCOUNTER → 2021-07-05 | Outpatient (RCR) | payer MEDICARE, OTHER | END | disposition home or self-care (01) | PROVIDERS: ATTEND Orthopaedic Surgery | DX: M25.561 Pain in right knee (principal); M25.461 Effusion, right knee; Z98.890 Other specified postprocedural states ==

== ENCOUNTER 2021-07-23 10:29 | Outpatient (RCR) | payer MEDICARE, OTHER | END 2021-07-23 11:11 | disposition home or self-care (01) | PROVIDERS: ATTEND Orthopaedic Surgery | DX: M25.561 Pain in right knee (principal); I10 Essential (primary) hypertension; Z98.890 Other specified postprocedural states; Z96.651 Presence of right artificial knee joint ==

== ENCOUNTER → 2021-08-04 | Outpatient (CLI) | payer MEDICARE, OTHER ==
--- NOTE | 2021-08-04 13:57 | Diagnostic Imaging Report ---
PROCEDURE: MRI lumbar spine. TECHNIQUE: Multiplanar, multisequence MRI of the lumbar spine was performed without contrast. INDICATION: Chronic low back pain EXAMINAtion: Lumbar sacral spine MRI 08/04/2021 FINDINGS: There is a grade 1 anterolisthesis at L5-S1. Remaining alignment is preserved. Tip of the conus unremarkable in appearance and location. L1-L2: There is bilateral facet and ligament flavum hypertrophy. There is no central stenosis. There is moderate left and mild right neural foraminal narrowing. L2-L3: There is disc desiccation with no significant bulging disc material. There is bilateral facet and ligamentum flavum hypertrophy. There is no central stenosis. There is moderate to severe left and moderate right neural foraminal narrowing. L3-L4: There is disc desiccation with a mild broad-based bulging disc. There is bilateral facet and ligamentum flavum hypertrophy. There is no significant central stenosis. There is moderate to severe bilateral neural foraminal narrowing. L4-L5: There is disc desiccation with a mild broad-based bulging disc containing a central annular tear. There is bilateral facet and ligament flavum hypertrophy. There is mild central narrowing. There is severe bilateral neural foraminal stenosis. L5-S1: There is disc desiccation with a broad-based bulging disc. There is bilateral facet and ligamentum flavum hypertrophy. There is secondary moderate central stenosis with narrowing of the lateral recesses bilaterally. There is severe bilateral neural foraminal stenosis. 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 The visualized intra-abdominal structures demonstrate no acute abnormality. Right kidney not seen perhaps surgically or congenitally absent. There is a hypointensity in the left kidney not consistent with a cyst. Dedicated imaging of the left kidney recommended. IMPRESSION: 1. Multilevel degenerative disease as discussed above. 2. Hypointensity within the left kidney. Dedicated imaging of the kidney recommended. Dictated by: Dictated on workstation # [id number]
== END ==
LOC: RAD 13:15
PROVIDERS: ATTEND Nurse Practitioner
DX: M51.26 Other intervertebral disc displacement, lumbar region (principal); M51.27 Other intervertebral disc displacement, lumbosacral region; M51.36 Other intervertebral disc degeneration, lumbar region; M51.37 Other intervertebral disc degeneration, lumbosacral region; M48.061 Spinal stenosis, lumbar region without neurogenic claudication; M48.07 Spinal stenosis, lumbosacral region; M24.28 Disorder of ligament, vertebrae
CPT/HCPCS: 72148

== ENCOUNTER → 2021-08-27 | Outpatient (CLI) | payer MEDICARE, OTHER ==
--- NOTE | 2021-08-27 11:06 | Diagnostic Imaging Report ---
PROCEDURE: US Renal Bilateral. TECHNIQUE: Multiple real-time grayscale images were obtained over the kidneys in various projections bilaterally. INDICATION: Abnormal kidney MRI. COMPARISON: CT from 02/17/2020, MRI from 08/04/2021 of the lumbar spine FINDINGS: The right kidney is absent. The left kidney measures 13 cm in length. There is a simple appearing cyst in the superior left kidney measuring up to 1.3 cm. There is another near simple appearing cyst in the superior left kidney more laterally, measuring up to 2.5 cm. There is some peripheral macrocalcification. There is no internal blood flow. There is another more lateral cystic lesion in the left kidney measuring up to 1.7 cm. The left ureteral jet is seen. The right is not seen. No filling defects are seen in the urinary bladder. IMPRESSION: 1. Cysts in the left kidney. No solid mass or hydronephrosis is seen. 2. Absent right kidney. Dictated by: Dictated on workstation # [id number]
== END ==
LOC: RAD 10:15
PROVIDERS: ATTEND Physician Assistant
DX: N28.1 Cyst of kidney, acquired (principal); Z90.5 Acquired absence of kidney
CPT/HCPCS: 76770

== ENCOUNTER → 2021-09-17 | Outpatient (CLI) | payer MEDICARE, OTHER ==
[~2021-09-17] MED LIST changes: +CATHETER FLUSH 10 ML SYR IV PRN; +HOLD METFORMIN - RECEIVED CONTRAST 20 ML VIAL IV SCH; +IOHEXOL 350 MG/ML 100 ML (OMNIPAQUE 350) VIAL IV ONE; +NS 100 ML (IVPB) BAG IV ONE
--- NOTE | 2021-09-17 10:24 | Diagnostic Imaging Report ---
CT ABDOMEN/PELVIS W TECHNIQUE: Multiple contiguous axial images were obtained through the abdomen and pelvis after administration of intravenous contrast. All CT scans use one or more of the following dose optimizing techniques: automated exposure control, MA and/or KvP adjustment based on patient size and exam type or iterative reconstruction. INDICATION: Abdominal pain. COMPARISON: 02/17/2020 FINDINGS: Lower chest: The lung bases are clear. No pericardial or pleural effusion. Peritoneum: No free intraperitoneal air or fluid. Liver and biliary system: The liver is normal. Cholecystectomy. Unchanged dilation of the common bile duct that is favored to represent reservoir effect from post cholecystectomy state. Spleen and Pancreas: Stable rim calcified 2.5 x 2.5 cm cyst within the spleen. The pancreas enhances normally without mass lesion or peripancreatic inflammatory changes. Adrenals: Normal. tract: The right kidney is again noted to be absent. There are a few cysts within the left kidney that are stable. No solid renal mass or obstructive uropathy. Urinary bladder is decompressed, limiting assessment. Hysterectomy. No adnexal mass. GI tract: Stomach is decompressed. No bowel obstruction. Descending and sigmoid colon diverticulosis without diverticulitis. Terminal ileum is normal in appearance. Appendix is not seen but there are no secondary features of acute appendicitis. Vasculature and Lymph nodes: Normal caliber aorta with severe atherosclerotic calcification. No abdominal or pelvic lymphadenopathy. Musculoskeletal: Unchanged grade 1 anterolisthesis in the lower lumbar spine due to facet osteoarthritis. IMPRESSION: 1. Colonic diverticulosis without diverticulitis. 2. No bowel obstruction. 3. Single left-sided kidney without obstruction or urinary tract calculi. Dictated by: Dictated on workstation # [id number]
== END ==
LOC: RAD 08:15
PROVIDERS: ATTEND Internal Medicine
DX: K57.30 Diverticulosis of large intestine without perforation or abscess without bleeding (principal); Q60.0 Renal agenesis, unilateral
CPT/HCPCS: 74177

== ENCOUNTER → 2021-10-19 | Outpatient (CLI) | payer MEDICARE, OTHER ==
[~2021-10-19] MED LIST changes: -CATHETER FLUSH 10 ML SYR IV PRN; -HOLD METFORMIN - RECEIVED CONTRAST 20 ML VIAL IV SCH; -IOHEXOL 350 MG/ML 100 ML (OMNIPAQUE 350) VIAL IV ONE; -NS 100 ML (IVPB) BAG IV ONE
--- NOTE | 2021-10-19 10:29 | Diagnostic Imaging Report ---
INDICATION: Postmenopausal screening COMPARISON: Baseline FINDINGS: AP Spine L1-L4: [BMD (g/cm2): 1.177] [T-Score: -0.2] [Z-Score: 1.4] [BMD Previous: na] [BMD % Change: na] LT Hip Neck: [BMD (g/cm2): 0.869] [T-Score: -1.2] [Z-Score: 0.7] LT Hip Total: [BMD (g/cm2):1.023] [T-Score:0.1] [Z-Score: 1.9] [BMD Previous: na] [BMD % Change: na] RT Hip Neck: [BMD (g/cm2):0.887] [T-Score:-1.1] [Z-Score:0.9] RT Hip Total: [BMD (g/cm2):0.969] [T-score:-0.3] [Z-Score:1.5] [BMD Previous:na] [BMD % Change:na] *Indicates significant change from prior examination based on 95% confidence level. World Health Organization criteria for BMD interpretation classify patients as Normal (T-score at or above -1.0), Osteopenic (T-score between -1.0 and -2.5) or Osteoporotic (T-score at or below -2.5). LIMITATIONS AND MODIFICATION: None. FRACTURE RISK (FRAX SCORE): The ten year probability of (%): Major Osteoporotic Fracture: [18.0] Hip Fracture: [3.4] IMPRESSION: 1. Osteopenia (Low bone mass). 2. Baseline examination. 3. See below National Osteoporosis Foundation guidelines on when to potentially initiate pharmacologic therapy. Based on the National Osteoporosis Foundation Guidelines, pharmacologic treatment should be initiated in any of the following, unless clinical conditions suggest otherwise: * Any patient with prior fragility fracture of the hip or vertebrae. A spine fracture indicates 5X risk for subsequent spine fracture and 2X risk for subsequent hip fracture. * Osteoporosis (T-score <-2.5). * Postmenopausal women and men age 50 and older with low bone mass/osteopenia (T-score between -1.0 and -2.5) by DXA and 10-year major osteoporotic fracture greater than 20% or a 10-year probability of hip fracture greater than 3%. These fracture risks are supplied above in the FRAX score, if applicable. * Clinician judgement and/or patient preferences may indicate treatment for people with 10-year fracture probabilities above or below these levels. Dictated by: Dictated on workstation # [id number]
== END ==
LOC: RAD 09:30
PROVIDERS: ATTEND Internal Medicine
DX: M85.80 Other specified disorders of bone density and structure, unspecified site (principal); Z78.0 Asymptomatic menopausal state
CPT/HCPCS: 77080

== ENCOUNTER → 2022-01-28 | Outpatient (CLI) | payer MEDICARE, OTHER ==
--- NOTE | 2022-01-28 13:53 | Diagnostic Imaging Report ---
INDICATION: Pain COMPARISON: None available TECHNIQUE: 2 radiographs left-sided ribs dated 01/28/2022. FINDINGS: Mild degenerative changes of the acromioclavicular joint. Degenerative changes noted within the partially visualized thoracic spine. No displaced or healing left-sided rib fracture. No significant left-sided pleural effusion or pneumothorax. 6 mm sclerotic focus noted within the central aspect of the left humeral head. IMPRESSION: No displaced or healing left-sided rib fracture. No significant pleural effusion or pneumothorax. Small sclerotic lesion within the left humeral head. This is favored related to a bone island. Given patient's age, sclerotic osseous metastatic disease is not totally excluded. Recommend clinical correlation. Dictated by: Dictated on workstation # [id number]
== END ==
LOC: RAD 11:20
PROVIDERS: ATTEND Physician Assistant
DX: M89.9 Disorder of bone, unspecified (principal)
CPT/HCPCS: 71100

== ENCOUNTER → 2022-02-01 | Outpatient (CLI) | payer MEDICARE, OTHER ==
--- NOTE | 2022-02-01 13:27 | Diagnostic Imaging Report ---
PROCEDURE: CT left upper extremity without contrast. TECHNIQUE: Multiple contiguous axial images were obtained through the left upper extremity without the use of intravenous contrast. Auto Exposure Controls were utilized during the CT exam to meet ALARA standards for radiation dose reduction. INDICATION: 81-year-old female, recent fall with description of small sclerotic lesion in the left humeral head at radiographs. CORRELATION STUDY: Rib radiographs 01/28/2022. FINDINGS: CT imaging of the left shoulder confirms a small asymmetric sclerotic lesion in the anterior central aspect of the left humeral head. This measures up to 6 mm in its maximum size. Central lucency is present. Margins are fairly well circumscribed. No expansion. No destruction. The remainder of the humeral head is otherwise unremarkable. Glenohumeral articulation unremarkable. The acromioclavicular joint is maintained. There is no acute fracture. No additional sclerotic lesion. The visualized left upper lung field clear. Calcification of the aortic arch. IMPRESSION: 1. Small sclerotic lesion in the left humeral head. This has a fairly benign appearance and may very well reflect a benign process such as a bone island. However, while limited assessment, cannot be completely confirmed as being present on the prior chest radiograph of September 2018. Therefore may very well be new and developed since then. Given this, while considered less likely, possibility of sclerotic metastasis does remain in the differential. Dictated by: Dictated on workstation # [id number]
== END ==
LOC: RAD 10:18
PROVIDERS: ATTEND Nurse Practitioner Family
DX: S49.82XA Other specified injuries of left shoulder and upper arm, initial encounter (principal); W19.XXXA Unspecified fall, initial encounter
CPT/HCPCS: 73200

== ENCOUNTER → 2022-04-19 | Outpatient (CLI) | payer MEDICARE, OTHER ==
--- NOTE | 2022-04-19 13:55 | Diagnostic Imaging Report ---
INDICATION: Right wrist pain. COMPARISON: 10/04/2018. TECHNIQUE: Three radiographs of the right wrist dated 04/19/2022. FINDINGS: No acute fracture or dislocation. No destructive osseous process. Mild scattered osseous degenerative changes are present including involving the 1st CMC joint. Scapholunate interval is within normal limits. Focal soft tissue swelling is noted involving the medial wrist. No suspicious radiopaque foreign body. IMPRESSION: No acute osseous abnormality with mild degenerative changes present. Focal soft tissue swelling involving the medial wrist without suspicious radiopaque foreign body. Dictated by: Dictated on workstation # [id number]
--- NOTE | 2022-04-19 16:22 | Diagnostic Imaging Report ---
INDICATION: Right wrist mass. EXAMINATION: Right wrist ultrasound. FINDINGS: Ultrasound of the medial aspect of the ventral aspect of the right wrist shows a multiloculated complex lesion that is predominantly fluid-filled structures with intervening thick septa. This measures 2.3 x 0.6 x 1.6 cm. There is no internal blood flow. IMPRESSION: Complex predominantly fluid collection in the volar aspect of the left wrist. This could be an organizing hematoma. There is no increased vascularity to suggest an inflammatory process. Dictated by: Dictated on workstation # [id number]
== END ==
LOC: RAD 13:22
PROVIDERS: ATTEND Physician Assistant
DX: M25.431 Effusion, right wrist (principal); R22.31 Localized swelling, mass and lump, right upper limb; M25.531 Pain in right wrist
CPT/HCPCS: 73110; 76881

== ENCOUNTER → 2022-06-30 | Outpatient (CLI) | payer MEDICARE, OTHER ==
[~2022-06-30] MED LIST changes: +CATHETER FLUSH 10 ML SYR IV PRN; +IOHEXOL 350 MG/ML 100 ML (OMNIPAQUE 350) VIAL IV ONE; +NS 100 ML (IVPB) BAG IV ONE
[2022-06-30 11:41] LABS: BASOPHILS # (AUTO) 0.1 10^3/uL (0.0-0.1); BASOPHILS % (AUTO) 1 % (0-10); EOSINOPHILS # (AUTO) 0.1 10^3/uL (0.0-0.3); EOSINOPHILS % (AUTO) 1 % (0-10); HEMATOCRIT 41 % (35-52); HEMOGLOBIN 13.5 g/dL (11.5-16.0); LYMPHOCYTES # (AUTO) 0.9 10^3/uL (1.0-4.0); LYMPHOCYTES % (AUTO) 11 % (12-44); MEAN CORPUSCULAR HEMOGLOBIN 31 pg (25-34); MEAN CORPUSCULAR HGB CONC 33 g/dL (32-36); MEAN CORPUSCULAR VOLUME 93 fL (80-99); MEAN PLATELET VOLUME 8.6 fL (9.0-12.2); MONOCYTES # (AUTO) 0.7 10^3/uL (0.0-1.0); MONOCYTES % (AUTO) 7 % (0-12); NEUTROPHILS % (AUTO) 81 % (42-75); PLATELET COUNT 291 10^3/uL (130-400); WHITE BLOOD COUNT 8.7 10^3/uL (4.3-11.0)
[2022-06-30 11:59] LABS: ALBUMIN 4.3 GM/DL (3.2-4.5); BILIRUBIN,TOTAL 0.5 MG/DL (0.1-1.0); CALCIUM 10.6 MG/DL (8.5-10.1); CREATININE SERUM 0.84 MG/DL (0.60-1.30); POTASSIUM 4.1 MMOL/L (3.6-5.0); TOTAL PROTEIN 7.2 GM/DL (6.4-8.2)
[2022-06-30 12:31] LABS: ERYTHROCYTE SEDIMENTATION RATE 9 MM/HR (0-30)
--- NOTE | 2022-06-30 13:07 | Diagnostic Imaging Report ---
PROCEDURE: CT abdomen and pelvis with contrast, rule out appendicitis. TECHNIQUE: Multiple contiguous axial images were obtained through the abdomen and pelvis after the administration of intravenous contrast. All CT scans use one or more of the following dose optimizing techniques: automated exposure control, MA and/or KvP adjustment based on patient size and exam type or iterative reconstruction. 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 COMPARED with abdominal pelvic CT 09/17/2021. The lung bases clear. The gallbladder is surgically absent. There is postcholecystectomy ectasia. The biliary ducts stable. No radiopaque biliary calculus. The pancreas and peripancreatic fat unremarkable. Peripherally calcified chronic splenic cyst associated with its lower pole stable. There is no organomegaly. The adrenals are negative. 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 A left upper pole renal cyst appeared simple at follow-up. No enhancing solid or complex renal mass. The atherosclerotic aorta is nonaneurysmal. I am unable to identify the patient's appendix but there were no pericecal or right lower quadrant inflammatory changes to suggest underlying appendicitis. There is fluid within the colonic lumen in keeping with the history of a diarrheal state. There is noninflamed sigmoid diverticulosis. No pericolonic or perienteric edema. No significant mucosal hyperenhancement. No bowel wall thickening. No pneumatosis. No free gas. The unopacified urinary bladder unremarkable. There is no adnexal lesion. The uterus absent. IMPRESSION: Chronic left renal and splenic cyst, prior cholecystectomy, noninflamed diverticulosis. Mildly elevated large bowel intraluminal fluid in keeping with a diarrheal history. No bowel, biliary or urinary tract obstruction, focal inflammatory process, ascites fluid collections or masses. Dictated by: Dictated on workstation # [id number]
== END ==
LOC: RAD 11:28
PROVIDERS: ATTEND Physician Assistant
DX: N28.1 Cyst of kidney, acquired (principal); D73.4 Cyst of spleen; K57.90 Diverticulosis of intestine, part unspecified, without perforation or abscess without bleeding
CPT/HCPCS: 36415; 74177; 80053; 85025; 85652; 86141

== ENCOUNTER → 2022-08-31 | Outpatient (CLI) | payer MEDICARE, OTHER ==
[~2022-08-31] MED LIST changes: -CATHETER FLUSH 10 ML SYR IV PRN; -IOHEXOL 350 MG/ML 100 ML (OMNIPAQUE 350) VIAL IV ONE; -NS 100 ML (IVPB) BAG IV ONE
--- NOTE | 2022-08-31 17:55 | Diagnostic Imaging Report ---
EXAMINATION: Cervical spine 2 or 3 views HISTORY: NECK PAIN COMPARISON: None available. FINDINGS: Vertebral body heights and alignment are normal. There is mild multilevel cervical spondylosis. Disc heights are preserved. The prevertebral soft tissues are normal. No acute fracture is seen. IMPRESSION: Degenerative changes of the cervical spine without acute osseous abnormality. Dictated by: Dictated on workstation # [id number]
== END ==
LOC: RAD 14:15
PROVIDERS: ATTEND Internal Medicine
DX: M47.812 Spondylosis without myelopathy or radiculopathy, cervical region (principal); M54.2 Cervicalgia
CPT/HCPCS: 72040